=== PATIENT | male | born 1965 | race Caucasian/White ===

== ENCOUNTER 2018-01-28 10:17 | Inpatient (IN) | payer OTHER ==
[~2018-01-28] VITALS: Ht 167.6 cm; Wt 90.0 kg
[2018-01-28 10:30] VITALS: BP 135/89; PULSE 100; RESP 18; TEMP 98.8; O2SAT 100
[2018-01-28 11:08] LABS: AUTOMATED NEUTROPHIL # 5.7 TH/MM3 (1.8-7.7); BASOPHIL # 0.1 TH/MM3 (0-0.2); BASOPHIL % 0.7 % (0.0-2.0); EOSINOPHIL # 0.1 TH/MM3 (0-0.4); EOSINOPHIL % 1.2 % (0.0-4.0); HEMATOCRIT 35.5 % (39.0-51.0); HEMOGLOBIN 11.9 GM/DL (13.0-17.0); LYMPH % 12.6 % (9.0-44.0); MEAN CELL VOLUME 93.2 FL (80.0-100.0); MEAN CORPUSCULAR HEMOGLOBIN 31.2 PG (27.0-34.0); MEAN CORPUSCULAR HGB CONC 33.5 % (32.0-36.0); MEAN PLATELET VOLUME 8.3 FL (7.0-11.0); MONO % 17.1 % (0.0-8.0); MONOCYTE # 1.4 TH/MM3 (0-0.9); NEUT % 68.4 % (16.0-70.0); PLATELET COUNT 48 TH/MM3 (150-450); RED BLOOD COUNT 3.81 MIL/MM3 (4.50-5.90); RED CELL DISTRIBUTION WIDTH 20.5 % (11.6-17.2); WHITE BLOOD COUNT 8.3 TH/MM3 (4.0-11.0)
[2018-01-28 11:22] LABS: ALBUMIN 3.3 GM/DL (3.4-5.0); ALT (GPT) 49 U/L (12-78); AST (GOT) 194 U/L (15-37); BICARBONATE 24.8 MEQ/L (21.0-32.0); BLOOD UREA NITROGEN 10 MG/DL (7-18); CALCIUM 9.3 MG/DL (8.5-10.1); CHLORIDE 102 MEQ/L (98-107); CREATININE 0.88 MG/DL (0.60-1.30); GLOMERULAR FILTRATION RATE 91 ML/MIN (>89); GLUCOSE,RANDOM 77 MG/DL (74-106); SODIUM (NA) 139 MEQ/L (136-145)
--- NOTE | 2018-01-28 11:28 | RADRPT ---
EXAM DATE: 01/28/2018 11:25 AM EDT AGE/SEX: 52 years / Male INDICATIONS: Contusion CLINICAL DATA: This is the patient's initial encounter. Patient reports that signs and symptoms have been present for 1 day and indicates a pain score of 2/10. MEDICAL/SURGICAL HISTORY: Hypertension. Appendectomy. RADIATION DOSE: 66.35 CTDI (mGy) COMPARISON: No prior exams available for comparison. TECHNIQUE: CT of the head without contrast. Using automated exposure control and adjustment of the mA and/or kV according to patient size, radiation dose was kept as low as reasonably achievable to ob tain optimal diagnostic quality images. FINDINGS: Cerebrum: The ventricles are normal for age. No evidence of midline shift, mass lesion, hemorrhage or acute infarction. No extraaxial fluid collections are seen. Posterior Fossa: The cerebellum and brainstem are intact. The 4th ventricle is midline. The cerebe llopontine angle is unremarkable. Extracranial: The visualized portion of the orbits is intact. Skull: The calvaria is intact. No evidence of skull fracture. CONCLUSION: 1. Negative for acute process Electronically signed by: Jevon Figueroa MD 01/28/2018 11:26 AM EDT
[2018-01-28 11:32] LABS: ALKALINE PHOSPHATASE 139 U/L (45-117)
[2018-01-28 11:42] LABS: TARGET CELLS 1+ (NORMAL)
[2018-01-28] MEDS ORDERED: LORazepam 2 MG TAB PO PRN (11:45)
[2018-01-28] MEDS ORDERED: IBUPROFEN 600 MG TAB PO PRN (11:45)
[2018-01-28] MEDS ORDERED: ACETAMINOPHEN 325 MG TAB PO PRN (11:45)
[2018-01-28] MEDS ORDERED: LACTULOSE SYRUP 20 GM/30 ML CUP PO ONE (11:45)
[2018-01-28] MEDS ORDERED: FLUMAZENIL 0.5 MG/5 ML VIAL IV PUSH PRN (11:45)
[2018-01-28] MEDS ORDERED: SODIUM CHLOR 0.9% 1000 ML INJ 1,000 ML IV ONE (11:45)
[2018-01-28] MEDS ORDERED: LORazepam 2 MG/ML VIAL IV PUSH PRN ×3 (11:45)
[2018-01-28] MEDS ORDERED: ONDANSETRON ODT 4 MG TAB PO PRN (11:45)
[2018-01-28 11:49] LABS: ACETAMINOPHEN LESS THAN 2.0 MCG/ML (10.0-30.0)
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
[2018-01-28 12:08] LABS: BACTERIA, URINE MOD /hpf; BILIRUBIN, URINE SMALL (NEG); BLOOD, URINE SMALL (NEG); CALCIUM OXALATE CRYSTALS,URINE RARE /hpf; GLUCOSE,URINE NEG (NEG); HYALINE CAST, URINE 5 /lpf (RARE); KETONE, URINE TRACE mg/dL (NEG); MUCUS URINE MANY /lpf (OCC); NITRITE,URINE NEG (NEG); URINE COLOR Amber (YELLW/STRAW); URINE LEUKOCYTE ESTERASE NEG (NEG)
[2018-01-28] MEDS ORDERED: NITROFURANTOIN MONOHYD MACROCR 100 MG CAP PO ONE (12:30)
[2018-01-28] MEDS: LORazepam 2 MG/ML VIAL IV PUSH PRN ×3 (13:11→16:02)
[2018-01-28 13:12] VITALS: BP 155/86; PULSE 91; RESP 17; O2SAT 100
[2018-01-28 14:54] VITALS: BP 145/77; PULSE 95; RESP 18; TEMP 99.2; O2SAT 99
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
[2018-01-28] MEDS ORDERED: cloNIDine HCL 0.1 MG TAB PO PRN (15:45)
[2018-01-28] MEDS ORDERED: SODIUM CHLORIDE 0.9% FLUSH 10 ML FLUSH IV FLUSH PRN (15:45)
[2018-01-28] MEDS ORDERED: LACTULOSE SYRUP 20 GM/30 ML CUP PO SCH (16:00)
[2018-01-28] MEDS ORDERED: chlordiazePOXIDE 25 MG CAP PO PRN (16:00)
[2018-01-28] MEDS: NITROFURANTOIN MONOHYD MACROCR 100 MG CAP PO SCH (17:46)
[2018-01-28 20:00] VITALS: PULSE 115
[2018-01-28 20:01] VITALS: BP 169/90; PULSE 95; RESP 18; TEMP 97.6; O2SAT 96
[2018-01-28] MEDS: FAMOTIDINE 20 MG TAB PO SCH (21:03)
[2018-01-28] MEDS: SODIUM CHLORIDE 0.9% FLUSH 10 ML FLUSH IV FLUSH SCH (21:03)
[2018-01-29] VITALS (8 sets, daily range): BP systolic 102–171; BP diastolic 68–81; PULSE 76–92; RESP 14–18; TEMP 97.9–98.4; O2SAT 95–99
[2018-01-29] MEDS: LORazepam 1 MG TAB PO PRN ×2 (06:05→19:27)
[2018-01-29 07:02] LABS: AUTOMATED NEUTROPHIL # 3.5 TH/MM3 (1.8-7.7); BASOPHIL # 0.1 TH/MM3 (0-0.2); BASOPHIL % 1.1 % (0.0-2.0); EOSINOPHIL # 0.1 TH/MM3 (0-0.4); EOSINOPHIL % 2.4 % (0.0-4.0); HEMOGLOBIN 10.9 GM/DL (13.0-17.0); LYMPH % 14.9 % (9.0-44.0); LYMPHOCYTE # 0.8 TH/MM3 (1.0-4.8); MEAN CORPUSCULAR HEMOGLOBIN 31.6 PG (27.0-34.0); MONO % 19.2 % (0.0-8.0); MONOCYTE # 1.1 TH/MM3 (0-0.9); NEUT % 62.4 % (16.0-70.0); PLATELET COUNT 48 TH/MM3 (150-450); RED BLOOD COUNT 3.45 MIL/MM3 (4.50-5.90); RED CELL DISTRIBUTION WIDTH 20.9 % (11.6-17.2); WHITE BLOOD COUNT 5.7 TH/MM3 (4.0-11.0)
[2018-01-29 07:47] LABS: ALBUMIN 2.7 GM/DL (3.4-5.0); ALKALINE PHOSPHATASE 118 U/L (45-117); ALT (GPT) 41 U/L (12-78); AST (GOT) 143 U/L (15-37); BICARBONATE 22.9 MEQ/L (21.0-32.0); BLOOD UREA NITROGEN 7 MG/DL (7-18); CALCIUM 8.5 MG/DL (8.5-10.1); CHLORIDE 107 MEQ/L (98-107); CREATININE 0.59 MG/DL (0.60-1.30); GLOMERULAR FILTRATION RATE 145 ML/MIN (>89); GLUCOSE,RANDOM 71 MG/DL (74-106); SODIUM (NA) 142 MEQ/L (136-145); TOTAL BILIRUBIN ADULT 4.3 MG/DL (0.2-1.0); TOTAL PROTEIN 6.7 GM/DL (6.4-8.2)
[2018-01-29 08:14] LABS: TARGET CELLS 1+ (NORMAL)
[2018-01-29] MEDS: THIAMINE HCL 100 MG TAB PO SCH (10:07)
[2018-01-29] MEDS: NITROFURANTOIN MONOHYD MACROCR 100 MG CAP PO SCH ×2 (10:07→19:27)
[2018-01-29] MEDS: MULTIVITAMINS/MINERALS THERAPEUTIC TAB PO SCH (10:07)
[2018-01-29] MEDS: FAMOTIDINE 20 MG TAB PO SCH ×2 (10:07→22:15)
[2018-01-29] MEDS: FOLIC ACID 1 MG TAB PO SCH (10:07)
--- NOTE | 2018-01-29 10:08 | HHI.PR ---
Subjective Remarks Follow-up alcohol withdrawal delirium January 29, 2018-patient seen and examined, appearing much more alert and oriented to self although still has some period of confusion. Potassium low. Vital stable Objective Vitals Vital Signs Date Time Temp Pulse Resp B/P (MAP) Pulse Ox O2 Delivery O2 Flow Rate FiO2 01/29/18 08:00 98.2 92 14 110/72 (85) 96 01/29/18 04:00 98.1 91 18 166/77 (106) 97 01/29/18 04:00 83 01/29/18 00:33 91 01/29/18 00:00 97.9 88 18 167/81 (109) 95 01/28/18 20:01 97.6 95 18 169/90 (116) 96 01/28/18 20:00 115 01/28/18 17:32 01/28/18 14:54 99.2 95 18 145/77 (99) 99 Room Air 01/28/18 13:12 91 17 155/86 (109) 100 Room Air 01/28/18 10:35 18 01/28/18 10:30 98.8 100 18 135/89 (104) 100 I/O 01/28/18 01/28/18 01/28/18 01/29/18 01/29/18 01/29/18 07:00 15:00 23:00 07:00 15:00 23:00 Intake Total 1000 ml Balance 1000 ml Intake IV Total 1000 ml # Voids 1 1 # Bowel Movements 1 Result Diagram: 01/29/18 0620 01/29/18 0620 Imaging Last Impressions Head CT 01/28/18 0000 Signed Impressions: CONCLUSION: 1. Negative for acute process Objective Remarks GENERAL: NAD with strength to upper extremities SKIN: Warm and dry. HEAD: Normocephalic. EYES: No scleral icterus. No injection or drainage. NECK: Supple, trachea midline. No JVD or lymphadenopathy. CARDIOVASCULAR: Regular rate and rhythm without murmurs, gallops, or rubs. RESPIRATORY: Breath sounds equal bilaterally. No accessory muscle use. GASTROINTESTINAL: Abdomen soft, non-tender, nondistended. MUSCULOSKELETAL: No cyanosis, or edema. BACK: Nontender without obvious deformity. No CVA tenderness. A/P Problem List: (1) Alcohol withdrawal ICD Code: F10.239 - Alcohol dependence with withdrawal, unspecified (2) Toxic encephalopathy ICD Code: G92 - Toxic encephalopathy (3) Alcohol withdrawal delirium ICD Code: F10.231 - Alcohol dependence with withdrawal delirium (4) Thrombocytopenia ICD Code: D69.6 - Thrombocytopenia, unspecified Status: Acute Assessment and Plan 52-year-old man with Alcohol withdrawal delirium Delirium tremens Continue CIWA protocol, rally pack, Librium protocol Continue with seizure precautions Psychiatry consultation pending secondary to Steiner act Toxic encephalopathy-improving Secondary to alcohol abuse Thrombocytopenia Secondary to liver disease due to chronic alcohol abuse Monitor platelets Hyperammonemia Increase lactulose to 30 every 12 Monitor ammonia level Hypokalemia Replace electrolytes with potassium 80 mEq 1 now DVT prophylaxis: Bilateral SCDs Kip Gomez MD Jan 29, 2018 10:08
[2018-01-29] MEDS ORDERED: POTASSIUM CHLORIDE 20 MEQ CONTROLLED RELEASE TAB PO ONE ×2 (10:30→12:30)
[2018-01-29] MEDS: SODIUM CHLORIDE 0.9% FLUSH 10 ML FLUSH IV FLUSH SCH ×2 (10:38→22:15)
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
[2018-01-29] MEDS ORDERED: chlordiazePOXIDE 25 MG CAP PO PRN (16:00)
[2018-01-29] MEDS: LACTULOSE SYRUP 20 GM/30 ML CUP PO SCH (22:15)
[2018-01-30] VITALS: BP 170/89; PULSE 79; RESP 18; TEMP 97.8; O2SAT 100
[2018-01-30 04:00] VITALS: BP 176/95; PULSE 87; RESP 18; TEMP 98.2; O2SAT 96
[2018-01-30 07:37] VITALS: BP 131/61; PULSE 84; RESP 16; TEMP 98.5; O2SAT 98
[2018-01-30 09:24] LABS: ALBUMIN 2.6 GM/DL (3.4-5.0); BICARBONATE 21.8 MEQ/L (21.0-32.0); BLOOD UREA NITROGEN 6 MG/DL (7-18); CALCIUM 9.1 MG/DL (8.5-10.1); CHLORIDE 107 MEQ/L (98-107); CREATININE 0.65 MG/DL (0.60-1.30); GLOMERULAR FILTRATION RATE 130 ML/MIN (>89); GLUCOSE,RANDOM 93 MG/DL (74-106); SODIUM (NA) 141 MEQ/L (136-145)
[2018-01-30 09:25] LABS: AST (GOT) 116 U/L (15-37)
[2018-01-30 09:28] LABS: ALKALINE PHOSPHATASE 132 U/L (45-117); ALT (GPT) 37 U/L (12-78); TOTAL BILIRUBIN ADULT 3.1 MG/DL (0.2-1.0); TOTAL PROTEIN 6.8 GM/DL (6.4-8.2)
[2018-01-30] MEDS: FOLIC ACID 1 MG TAB PO SCH (09:28)
[2018-01-30] MEDS: LACTULOSE SYRUP 20 GM/30 ML CUP PO SCH (09:28)
[2018-01-30] MEDS: FAMOTIDINE 20 MG TAB PO SCH (09:28)
[2018-01-30] MEDS: NITROFURANTOIN MONOHYD MACROCR 100 MG CAP PO SCH (09:28)
[2018-01-30] MEDS: THIAMINE HCL 100 MG TAB PO SCH (09:28)
[2018-01-30] MEDS: MULTIVITAMINS/MINERALS THERAPEUTIC TAB PO SCH (09:28)
[2018-01-30] MEDS: SODIUM CHLORIDE 0.9% FLUSH 10 ML FLUSH IV FLUSH SCH (09:31)
--- NOTE | 2018-01-30 10:22 | HHI.PR ---
Subjective Remarks Follow-up alcohol withdrawal delirium January 29, 2018-patient seen and examined, appearing much more alert and oriented to self although still has some period of confusion. Potassium low. Vital stable January 30, 2018-patient seen and examined, alert and oriented 3, Steiner act was lifted yesterday by psychiatry. Patient is stable and ready for discharge pending evaluation from PT Objective Vitals Vital Signs Date Time Temp Pulse Resp B/P (MAP) Pulse Ox O2 Delivery O2 Flow Rate FiO2 01/30/18 07:37 98.5 84 16 131/61 (84) 98 01/30/18 04:00 98.2 87 18 176/95 (122) 96 01/30/18 00:00 97.8 79 18 170/89 (116) 100 01/29/18 20:00 98.4 84 18 171/77 (108) 99 01/29/18 15:53 98.2 91 16 102/68 (79) 95 01/29/18 12:28 98.1 91 16 102/68 (79) 95 01/29/18 12:00 87 I/O 01/29/18 01/29/18 01/29/18 01/30/18 01/30/18 01/30/18 07:00 15:00 23:00 07:00 15:00 23:00 # Voids 1 5 # Bowel Movements 1 2 Result Diagram: 01/29/18 0620 01/30/18 0827 Imaging Last Impressions Head CT 01/28/18 0000 Signed Impressions: CONCLUSION: 1. Negative for acute process Objective Remarks GENERAL: NAD SKIN: Warm and dry. HEAD: Normocephalic. EYES: No scleral icterus. No injection or drainage. NECK: Supple, trachea midline. No JVD or lymphadenopathy. CARDIOVASCULAR: Regular rate and rhythm without murmurs, gallops, or rubs. RESPIRATORY: Breath sounds equal bilaterally. No accessory muscle use. GASTROINTESTINAL: Abdomen soft, non-tender, nondistended. MUSCULOSKELETAL: No cyanosis, or edema. BACK: Nontender without obvious deformity. No CVA tenderness. Procedures None A/P Problem List: (1) Alcohol withdrawal ICD Code: F10.239 - Alcohol dependence with withdrawal, unspecified (2) Toxic encephalopathy ICD Code: G92 - Toxic encephalopathy (3) Alcohol withdrawal delirium ICD Code: F10.231 - Alcohol dependence with withdrawal delirium (4) Thrombocytopenia ICD Code: D69.6 - Thrombocytopenia, unspecified Status: Acute Assessment and Plan 52-year-old man with Alcohol withdrawal delirium -resolved Delirium tremens-resolved Continue CIWA protocol, rally pack, Librium protocol Continue with seizure precautions Appreciate input from psychiatryJatin act was lifted yesterday Toxic encephalopathy-improving Secondary to alcohol abuse Thrombocytopenia Secondary to liver disease due to chronic alcohol abuse Monitor platelets Hyperammonemia Continue lactulose 30 every 12 Monitor ammonia level Hypokalemia Replace electrolytes DVT prophylaxis: Bilateral SCDs Kip Gomez MD Jan 30, 2018 10:22
[2018-01-30] MEDS ORDERED: CHLO25CA9 PO (10:24)
[2018-01-30] MEDS ORDERED: Lactulose Liq PO (10:24)
[2018-01-30] MEDS ORDERED: THIA100 PO (10:24)
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
[2018-01-30 12:00] VITALS: BP 155/86; PULSE 16; RESP 16; TEMP 98.6; O2SAT 95
[2018-01-30] MEDS ORDERED: chlordiazePOXIDE 25 MG CAP PO SCH (16:00)
[2018-01-31] MEDS ORDERED: chlordiazePOXIDE 25 MG CAP PO PRN (16:00)
== END 2018-01-30 12:52 | disposition home or self-care (01) | DRG 896 ==
LOC: NEDAMB 10:17 → NEDA 15:27 → N05B 17:30
PROVIDERS: ADMIT Hospitalist; ATTEND Hospitalist
DX: F10.231 Alcohol dependence with withdrawal delirium (principal); G92 Toxic encephalopathy; E72.20 Disorder of urea cycle metabolism, unspecified; D69.6 Thrombocytopenia, unspecified; E87.6 Hypokalemia; F10.24 Alcohol dependence with alcohol-induced mood disorder; S91.302A Unspecified open wound, left foot, initial encounter; F41.9 Anxiety disorder, unspecified; F32.9 Major depressive disorder, single episode, unspecified; I10 Essential (primary) hypertension; Z88.0 Allergy status to penicillin; Z72.0 Tobacco use
CPT/HCPCS: 70450; 80053; 80307; 81001; 82140; 84443; 85025; 87086; 96361; 96374; 96376; J2060; J7030